=== PATIENT | female | born 1950 | race Caucasian/White ===

== ENCOUNTER 2020-06-14 07:30 | Outpatient (CLI) | payer MEDICARE, MEDICAID, SELFPAY ==
--- NOTE | 2020-06-14 | DI.US_ITS ---
EXAM: US LOWER EXTREMITY VENOUS LT CLINICAL HISTORY: BREAST CA WITH LT LOWER LEG SWELLING AND PAIN, ? DVT TECHNIQUE: Left lower extremity venous ultrasound performed using grayscale, color-flow, and spectra l Doppler analysis. COMPARISON: No exams were available for comparison FINDINGS: The left common femoral, femoral and popliteal veins demonstrate normal compressibility, augmentation , and color Doppler. The posterior tibial veins are patent. The saphenofemoral junction is unremarka ble. There is no evidence of a Zavala cyst. The soft tissues are unremarkable. IMPRESSION: No DVT. DATA REPOSITORY:
== END 2020-06-14 07:50 ==
PROVIDERS: PCP Internal Medicine; Visit Provider Radiology Radiation Oncology
DX: R60.0 Localized edema (principal)
CPT/HCPCS: 93971

== ENCOUNTER 2020-07-12 10:12 | Outpatient (CLI) | payer MEDICARE, MEDICAID, SELFPAY ==
--- NOTE | 2020-07-12 | DI.CT_ITS ---
EXAM: CT NECK W CLINICAL HISTORY: BREAST CA, THROAT PAIN,ODYNIPHAGIA,DYSPHAGIA,R13.0,R07.0. TECHNIQUE: Imaging Protocol: Axial computed tomography images with coronal and sagittal reformatted images were created and reviewed. 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 The aortic arch shows mild calcification. There i s mild calcification at the right innominate artery. The dilatation of the aortic arch causes deviat ion of the trachea and esophagus toward the right. There is no evidence of dissection. There is kin joey in the midportion of the arch but no significant stenosis. There is minimal calcific plaque at the left common carotid bulb. There is no significant carotid or vertebral artery stenosis. There i s no evidence of mass or adenopathy. The [id number]-[id number] vasculature is unremarkable as visualized. The orbits and sinuses as well as mastoid air cells appear normal. There are mild degenerative kofi nges in the cervical and upper thoracic spine. The thyroid, submandibular and parotid glands appear normal. The lung apices appear clear. 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 RADIATION DOSE DELIVERED: 410.27mGy.cm Total DLP 410.27mGy.cm Total DLP DATA REPOSITORY: All CT scans at this facility are submitted to the National Radiology Data Registry (NRDR) Dose Index Registry (DIR) with the [employer] ([employer]). RADIATION OPTIMIZATION: All CT scans at this facility use at least one of these dose optimization te chniques: automated exposure control; mA and/or kV adjustment per patient size (includes targeted exa ms where dose is matched to clinical indication); or iterative reconstruction.
[2020-07-12 14:52] LABS: CREATININE 0.61 mg/dL (0.55-1.02)
[2020-07-12] MEDS: Omnipaque 350 MG/ML 100 ML BTL IJ (15:25)
[2020-07-12] MEDS: Normal Saline - Diluent 50 ML VIAL IV (15:27)
== END 2020-07-12 10:32 ==
PROVIDERS: PCP Internal Medicine; Visit Provider Radiology Radiation Oncology
DX: R13.0 Aphagia (principal); R07.0 Pain in throat; R13.10 Dysphagia, unspecified; I77.810 Thoracic aortic ectasia
CPT/HCPCS: 70491; 82565; J3490

== ENCOUNTER 2020-07-17 06:45 | Outpatient (CLI) | payer MEDICARE, MEDICAID, SELFPAY ==
--- NOTE | 2020-07-17 | DI.RAD_ITS ---
EXAM: XR SHOULDER RT COMPLETE 2+V CLINICAL HISTORY: MALIGNANT NEOPLASM LT BREAST C50.912, RT ARM PAIN W/ DECREASED MOBILITY TECHNIQUE: COMPARISON: CR XR HUMERUS RT from 07/17/2020 FINDINGS: Two views of the humerus and multiple views of the shoulder were obtained. There are minimal degener ative changes of the acromioclavicular and glenohumeral joints. No gross erosive or destructive lesi on identified. No soft tissue abnormality seen. IMPRESSION: No evidence of acute process. RADIATION DOSE DELIVERED: Total DLP
== END 2020-07-17 07:05 ==
PROVIDERS: PCP Internal Medicine; Visit Provider Radiology Radiation Oncology
DX: M79.621 Pain in right upper arm (principal); M19.011 Primary osteoarthritis, right shoulder; C50.912 Malignant neoplasm of unspecified site of left female breast
CPT/HCPCS: 73030; 73060